=== PATIENT | female | born 1965 | race Caucasian/White ===

== ENCOUNTER → 2016-12-13 | Outpatient (CLI) | payer OTHER ==
[~2016-12-13] MED LIST: ASPCH81 PO; CHOL100027 PO; FRRS300 PO; METO25TA56 PO; PROBIOTICS; SULF800T23 PO
--- NOTE | 2016-12-13 15:41 | MAMMOGRAPHY REPORT ---
BILATERAL DIGITAL SCREENING MAMMOGRAM TOMOSYNTHESIS WITH CAD: 12/13/2016 TECHNIQUE: Breast tomosynthesis in addition to standard 2D mammography was performed. Current study was also evaluated with a Computer Aided Detection (CAD) system. COMPARISON: Comparison is made to exams dated: 12/13/2015 mammogram, 12/07/2014 mammogram, 04/29/2012 m ammogram, 05/03/2013 mammogram, and 07/23/2010 mammogram - [facility]. BREAST COMPOSITION: The tissue of both breasts is heterogeneously dense, which may obscure small ma sses. FINDINGS: No suspicious masses, calcifications, or areas of architectural distortion are noted in e ither breast. There has been no significant interval change compared to prior exams. Benign-appeari ng oval 11 mm mass in the left lower inner quadrant is stable compared to prior exams. IMPRESSION: ACR BI-RADS CATEGORY 2: BENIGN There is no mammographic evidence of malignancy. A 1 year screening mammogram is recommended. The p atient will receive written notification of the results. Approximately 10% of breast cancers are not detected with mammography. A negative mammographic repor t should not delay biopsy if a clinically suggestive mass is present. Arianne Anaya M.D. ah/:12/13/2016 12:21:29 [employer] Plant Operator: Yeimi SHARMA(R)(M), [facility] letter sent: Normal 1/2 BI-RADS Code: ACR BI-RADS Category 2: Benign
== END | disposition home or self-care (01) ==
LOC: C.MAMM 11:45
PROVIDERS: ATTEND Obstetrics & Gynecology
DX: Z12.31 Encounter for screening mammogram for malignant neoplasm of breast (principal)

== ENCOUNTER → 2017-03-18 | Outpatient (CLI) | payer OTHER | END | disposition home or self-care (01) | LOC: C.PAPS 13:51 | PROVIDERS: ATTEND Obstetrics & Gynecology | DX: Z01.419 Encounter for gynecological examination (general) (routine) without abnormal findings (principal) ==

== ENCOUNTER → 2017-05-01 | Outpatient (CLI) | payer OTHER | END | disposition home or self-care (01) | LOC: C.PATHSPEC 13:59 | PROVIDERS: ATTEND Obstetrics & Gynecology | DX: Z01.419 Encounter for gynecological examination (general) (routine) without abnormal findings (principal); N93.9 Abnormal uterine and vaginal bleeding, unspecified; N91.2 Amenorrhea, unspecified; N95.0 Postmenopausal bleeding; E78.00 Pure hypercholesterolemia, unspecified; I34.0 Nonrheumatic mitral (valve) insufficiency; I34.1 Nonrheumatic mitral (valve) prolapse; R00.2 Palpitations ==

== ENCOUNTER → 2017-07-25 | Outpatient (CLI) | payer OTHER ==
[2017-07-25 13:26] LABS: ALT/SGPT 22 U/L (12-78); AST/SGOT 16 U/L (15-37); BLOOD UREA NITROGEN 16 mg/dl (7-18); BUN/CREATININE RATIO 17.6 (10-20); CALCIUM 9.1 mg/dl (8.5-10.1); CARBON DIOXIDE 29 mmol/L (21-32); CHLORIDE 105 mmol/L (98-107); CHOLESTEROL 259 mg/dl (0-200); CREATININE 0.93 mg/dl (0.60-1.20); GLUCOSE 100 mg/dl (70-99); POTASSIUM 3.8 mmol/L (3.5-5.1); SODIUM 139 mmol/L (136-145); TRIGLYCERIDES 130 mg/dl (0-150); VERY LOW DENSITY LIPOPROT CALC 26 mg/dl
[2017-07-25 13:29] LABS: ALB/GLOB RATIO 1.3 (0.9-2); ALKALINE PHOSPHATASE 69 U/L (45-117); CHOLESTEROL/HDL RATIO 3.8; HDL CHOLESTEROL 68 mg/dl; LDL CHOLESTEROL CALCULATED 165 mg/dl
== END | disposition home or self-care (01) ==
LOC: C.LABBC 09:13
PROVIDERS: ATTEND Family Medicine
DX: E78.5 Hyperlipidemia, unspecified (principal)

== ENCOUNTER → 2017-11-19 | Day surgery (SDC) | payer OTHER ==
[2017-10-23 11:14] VITALS: Ht 163.8 cm; Wt 63.6 kg
[~2017-11-19] VITALS: Ht 163.8 cm; Wt 63.6 kg
[~2017-11-19] MED LIST changes: -ASPCH81 PO; +ASPI81TA28 PO; +ATOR10TA82 PO; +COEN1TAB3 PO; +CURCUMIN PO; +DIPH-296 PO; -FRRS300 PO; +LIDOCAINE HCL 2% 2 ML VIAL (20MG/ML) ONE; +METH500T3 PO; +METO25TA3 PO; -METO25TA56 PO; +PROB1TAB16 PO; -PROBIOTICS; +PROPOFOL IV EMULSION 10 MG/ML 20 ML VIAL IV ONE; +PSEU120C2 PO; +PSEU60TA80 PO; +SLWMEC PO; +SODIUM CHLORIDE 0.9% 500ML 500 ML IV ONE; -SULF800T23 PO; +VNTHFA/IN INH
--- NOTE | 2017-11-19 14:43 | Endo History and Physical ---
History & Physical Date of Service: Nov 19, 2017. Chief Complaint: screening Referring Physician: Dr. Vargas History of Present Illness 52 yo CF who presents for screening colonoscopy. Past Surgical History Hx Cardiac Surgery: No Hx Internal Defibrillator: No Hx Pacemaker: No Hx Abdominal Surgery: Yes (ENDOMETRIAL ABLATION, D&C X3, LAPAROTOMY FOR OVARIAN CYSTS, EXP LAP) Hx of Implantable Prosthesis: No Hx Post-Op Nausea and Vomiting: Yes Hx Cancer Surgery: No Hx Thoracic Surgery: No Hx Orthopedic: No Hx Urinary Tract Surgery: No Family History None Social History Smoking Status: Former Smoker Hx Substance Use: No Hx Alcohol Use: Yes (1 BEER/DAY) Allergies Coded Allergies: Cephalosporins (Verified Allergy, Unknown, FEVER?, 10/23/17) Current Medications Reported Home Medications Medications Dose Route/Sig Max Daily Dose Days Date Category Ventolin Hfa (Albuterol) 200 Puffs/62702 Mcg Aers 2-4 Puffs INH Q6H PRN 10/23/17 Reported Slow-Mag Tab (Magnesium Chloride) 64 Mg Tabcr 64 Mg PO DAILY 10/23/17 Reported [Curcumin] 250 Mg PO DAILY 10/23/17 Reported 12 Hour Decongestant (Pseudoephedrine Hcl) 120 Mg Cap 1 Cap PO BID PRN 10/23/17 Reported Mucinex D (Pseudoephedrine-Guaifenesin) 1 Tab Tab 1 Tab PO BID PRN 10/23/17 Reported Probiotic (Probiotic Product) 1 Tab Tab 1 Tab PO DAILY 10/23/17 Reported Simply Sleep (Diphenhydramine Hcl (Sleep)) 25 Mg Tab 2 Tabs PO HS 10/23/17 Reported Coenzyme Q10 (Coenzyme Q10 (Ubidecarenone)) 100 Mg Tab 1 Tab PO MWF 10/23/17 Reported Citrucel (Methylcellulose (Laxative)) 500 Mg Tab 1 Tab PO BID 10/23/17 Reported Aspirin Ec (Aspirin) 81 Mg Tab 81 Mg PO DAILY 10/23/17 Reported Lipitor (Atorvastatin Calcium) 10 Mg Tab 10 Mg PO MWF 10/23/17 Reported Toprol-Xl (Metoprolol Succinate) 25 Mg Tabcr 1.5 Tab PO QPM 10/23/17 Reported Vitamin D 1000 Unit (Cholecalciferol) 1,000 Unit Cap 1,000 Inter.unit PO DAILY 01/11/12 Reported Vital Signs Weight (Kilograms): 63.64 Height (Feet): 5 Height (Inches): 4.5 Date Time Temp Pulse Resp B/P (MAP) Pulse Ox O2 Delivery O2 Flow Rate FiO2 11/19/17 14:12 36.6 80 20 120/79 (93) 99 Room Air Physical Exam General Appearance: WD/WN, no apparent distress Respiratory/Chest: Auscultation: breath sounds normal Cardiovascular: Heart Auscultation: RRR Abdomen: Bowel Sounds: normal Inspection & Palpation: soft, non-distended, no tenderness, guarding & rebound Assessment and Plan Assessment: 52 yo CF who presents for screening colonoscopy. Plan: Proceed with colonoscopy.
--- NOTE | 2017-11-19 15:32 | GI REPORT ---
Procedure Date: 11/19/2017 3:00 PM Procedure: Colonoscopy Indications: Screening for colorectal malignant neoplasm Medicines: Monitored Anesthesia Care Complications: No immediate complications. Estimated Blood Loss: Estimated blood loss: none. Procedure: Pre-Anesthesia Assessment: - Prior to the procedure, a History and Physical was performed, and patient medications and allergies were reviewed. The patient's tolerance of previous anesthesia was also reviewed. The risks and benefits of the procedure and the sedation options and risks were discussed with the patient. All questions were answered, and informed consent was obtained. Prior Anticoagulants: The patient has taken aspirin, last dose was 2 days prior to procedure. ASA Grade Assessment: II - A patient with mild systemic disease. After reviewing the risks and benefits, the patient was deemed in satisfactory condition to undergo the procedure. After I obtained informed consent, the scope was passed under direct vision. Throughout the procedure, the patient's blood pressure, pulse, and oxygen saturations were monitored continuously. The Scope was introduced through the anus and advanced to the terminal ileum. The colonoscopy was performed without difficulty. The patient tolerated the procedure well. The quality of the bowel preparation was good. The terminal ileum, ileocecal valve, appendiceal orifice, and rectum were photographed. Findings: The perianal and digital rectal examinations were normal. Non-bleeding internal hemorrhoids were found during retroflexion. The hemorrhoids were small. The exam was otherwise without abnormality. Impression: - Non-bleeding internal hemorrhoids. - The examination was otherwise normal. - No specimens collected. Recommendation: - Resume previous diet. - Continue present medications. - Repeat colonoscopy in 10 years for surveillance. - Return to primary care physician as previously scheduled. Franklin Keenan DO 11/19/2017 3:32:11 PM This report has been signed electronically. Note Initiated On: 11/19/2017 3:00 PM I attest to the content of the Intraoperative Record and orders documented therein, exceptions below
[2017-11-19 15:45] VITALS: BP 116/74; PULSE 63; O2SAT 100
--- NOTE | 2017-11-19 15:57 | Discharge Instructions ---
Endoscopy Patient Instructions Date / Procedure(s) Performed Nov 19, 2017. Colonoscopy Allergy Information Coded Allergies: Cephalosporins (Verified Allergy, Unknown, FEVER?, 10/23/17) Discharge Date / Findings Nov 19, 2017. Internal hemorrhoids Medication Instructions Stopped Medication(s): last ASA Friday OK to resume all medications today as prescribed Reported Home Medications Medications Dose Route/Sig Max Daily Dose Days Date Category Ventolin Hfa (Albuterol) 200 Puffs/72567 Mcg Aers 2-4 Puffs INH Q6H PRN 10/23/17 Reported Slow-Mag Tab (Magnesium Chloride) 64 Mg Tabcr 64 Mg PO DAILY 10/23/17 Reported [Curcumin] 250 Mg PO DAILY 10/23/17 Reported 12 Hour Decongestant (Pseudoephedrine Hcl) 120 Mg Cap 1 Cap PO BID PRN 10/23/17 Reported Mucinex D (Pseudoephedrine-Guaifenesin) 1 Tab Tab 1 Tab PO BID PRN 10/23/17 Reported Probiotic (Probiotic Product) 1 Tab Tab 1 Tab PO DAILY 10/23/17 Reported Simply Sleep (Diphenhydramine Hcl (Sleep)) 25 Mg Tab 2 Tabs PO HS 10/23/17 Reported Coenzyme Q10 (Coenzyme Q10 (Ubidecarenone)) 100 Mg Tab 1 Tab PO MWF 10/23/17 Reported Citrucel (Methylcellulose (Laxative)) 500 Mg Tab 1 Tab PO BID 10/23/17 Reported Aspirin Ec (Aspirin) 81 Mg Tab 81 Mg PO DAILY 10/23/17 Reported Lipitor (Atorvastatin Calcium) 10 Mg Tab 10 Mg PO MWF 10/23/17 Reported Toprol-Xl (Metoprolol Succinate) 25 Mg Tabcr 1.5 Tab PO QPM 10/23/17 Reported Vitamin D 1000 Unit (Cholecalciferol) 1,000 Unit Cap 1,000 Inter.unit PO DAILY 01/11/12 Reported Provider Instructions Activity Restrictions - No exercising or heavy lifting for 24 hours. - Do not drink alcohol the day of the procedure. - Do not drive a car or operate machinery until the day after the procedure. - Do not make any important decisions or sign important papers in 24 hours after the procedure. Following Day: - Return to full activity which may include returning to work/school. Diet Start your diet with liquids and light foods (jello, soup, juice, toast). Then eat your usual diet if not nauseated. Treatment For Common After Affects For mild abdominal pain, bloating, or excessive gas: - Rest - Eat lightly - Lie on right side Follow-Up Information Follow-up with Dr. Vargas as scheduled Anesthesia Information What You Should Know You have had a procedure that required some medicine to reduce anxiety and discomfort. This treatment is called moderate sedation. After receiving the treatment, you may be sleepy, but you will be able to breathe on your own. The effects of the treatment may last for several hours. Follow these instructions along with Activity/Diet recommendations noted above: * Do NOT do anything where dizziness or clumsiness would be dangerous. * Rest quietly at home today, then you can be up and about tomorrow. * Have a responsible person stay with you the rest of today. * You may have had an I.V. today. If so, you may take the dressing off later today. Recommendations Call your doctor if: * Trouble breathing * Continuous vomiting for more than 24 hours * Temperature above 101 degrees * Severe abdominal pain or bloating * Pain not relieved by pain medicine ordered * There is increased drainage or redness from any incision * A large amount of rectal bleeding greater than 2-3 tablespoons. (If you had a polyp/s removed or have hemorrhoids, a small amount of blood - from the rectum is to be expected.) * You have any unanswered questions or concerns. IN THE EVENT OF A SERIOUS EMERGENCY, GO TO THE NEAREST EMERGENCY ROOM Your discharge instructions were prepared by provider Franklin Keenan. Patient Instructions Signature Page Yue Mccullough Patient (or Guardian) Signature/Date: I have read and understand the instructions given to me by my caregivers. Caregiver/RN/Doctor Signature/Date: The above-named patient and/or guardian has received patient instructions on this date. + Original Patient Signature Page (only) stays with chart. Please make copy for patient.
--- NOTE | 2017-11-19 16:01 | Anesthesiology Progress Note ---
Anesthesia Post Op Note Date & Time Nov 19, 2017 at 16:01 Vital Signs Pain Intensity: 0 Vital Signs Past 12 Hours Date Time Temp Pulse Resp B/P (MAP) Pulse Ox O2 Delivery O2 Flow Rate FiO2 11/19/17 15:45 63 16 116/74 (88) 100 Room Air 11/19/17 15:30 85 16 107/67 (80) 98 Room Air 11/19/17 14:12 36.6 80 20 120/79 (93) 99 Room Air Notes Mental Status: alert / awake / arousable, participated in evaluation Pt Amnestic to Procedure: Yes Nausea / Vomiting: adequately controlled Pain: adequately controlled Airway Patency, RR, SpO2: stable & adequate BP & HR: stable & adequate Hydration State: stable & adequate Anesthetic Complications: no major complications apparent
== END | disposition home or self-care (01) ==
LOC: C.GI 13:48
PROVIDERS: ATTEND Internal Medicine
DX: Z12.11 Encounter for screening for malignant neoplasm of colon (principal); K64.8 Other hemorrhoids; J45.909 Unspecified asthma, uncomplicated; Z98.890 Other specified postprocedural states; Z87.891 Personal history of nicotine dependence; Z79.82 Long term (current) use of aspirin; Z79.899 Other long term (current) drug therapy

== ENCOUNTER → 2017-12-16 | Outpatient (CLI) | payer OTHER ==
[~2017-12-16] MED LIST changes: -LIDOCAINE HCL 2% 2 ML VIAL (20MG/ML) ONE; -PROPOFOL IV EMULSION 10 MG/ML 20 ML VIAL IV ONE; -SODIUM CHLORIDE 0.9% 500ML 500 ML IV ONE
--- NOTE | 2017-12-17 15:06 | MAMMOGRAPHY REPORT ---
BILATERAL DIGITAL SCREENING MAMMOGRAM TOMOSYNTHESIS WITH CAD: 12/16/2017 CLINICAL HISTORY: Routine screening. Patient has no complaints. TECHNIQUE: Breast tomosynthesis in addition to standard 2D mammography was performed. Current study was also evaluated with a Computer Aided Detection (CAD) system. COMPARISON: Comparison is made to exams dated: 12/13/2016 mammogram, 12/13/2015 mammogram, 12/07/2014 yevgeniy mogram, 05/03/2013 mammogram, 04/29/2012 mammogram, and 07/23/2010 mammogram - [facility]. BREAST COMPOSITION: The tissue of both breasts is heterogeneously dense, which may obscure small mas ses. FINDINGS: The parenchymal pattern is unchanged. No developing mass, architectural distortion or clus ter of suspicious microcalcifications is seen in either breast. IMPRESSION: ACR BI-RADS CATEGORY 2: BENIGN There is no mammographic evidence of malignancy. A 1 year screening mammogram is recommended. The pa tient will receive written notification of the results. Approximately 10% of breast cancers are not detected with mammography. A negative mammographic report should not delay biopsy if a clinically suggestive mass is present. Angelita Mayorga M.D. ay/:12/16/2017 16:33:19 Associate Professor Of Physics: Radha SHARMA(Breanne)(M), [facility] letter sent: Normal 1/2 BI-RADS Code: ACR BI-RADS Category 2: Benign
== END | disposition home or self-care (01) ==
LOC: C.MAMM 11:29
PROVIDERS: ATTEND Obstetrics & Gynecology
DX: Z12.31 Encounter for screening mammogram for malignant neoplasm of breast (principal)

== ENCOUNTER → 2018-03-19 | Outpatient (CLI) | payer OTHER ==
[~2018-03-19] MED LIST changes: -COEN1TAB3 PO; +OMEG1CAP91 PO; +ONDA4TAB10 SL
== END | disposition home or self-care (01) ==
LOC: C.PAPS 18:09
PROVIDERS: ATTEND Obstetrics & Gynecology
DX: Z01.419 Encounter for gynecological examination (general) (routine) without abnormal findings (principal)